=== PATIENT | female | born 1930 | race Caucasian/White ===

== ENCOUNTER → 2017-06-01 | Outpatient (CLI) | payer MEDICARE, MEDICAID | LOC: COL.RAD 10:57 | DX: Z01.812 Encounter for preprocedural laboratory examination (principal); I77.3 Arterial fibromuscular dysplasia; K29.70 Gastritis, unspecified, without bleeding; K92.1 Melena; K22.70 Barrett's esophagus without dysplasia; R19.7 Diarrhea, unspecified; R09.89 Other specified symptoms and signs involving the circulatory and respiratory systems | CPT/HCPCS: Q9967 ==